=== PATIENT | female | born 1980 | race Caucasian/White ===

== ENCOUNTER 2018-01-12 01:05 | Emergency (ER) | payer MEDICAID ==
[2018-01-12] MEDS: ACETAMINOPHEN 325 MG TAB PO (03:07)
[2018-01-12 03:21] LABS: ADD MAN DIFF? NO
[2018-01-12 03:24] LABS: WHITE BLOOD COUNT 4.8 10^3/ul (4.8-10.8)
[2018-01-12 03:24] LABS: BASOPHILS % 0.2 % (0.0-2.0); EOSINOPHILS # 0.2 10^3/ul (0.0-0.5); EOSINOPHILS % 3.2 % (0.0-7.0); HEMATOCRIT 36.9 % (37.0-47.0); HEMOGLOBIN 11.9 g/dl (12.0-16.0); LYMPHOCYTES # 2.5 10^3/ul (0.8-2.9); LYMPHOCYTES % 51.9 % (15.0-51.0); MEAN CORPUSCULAR HEMOGLOBIN 27.7 pg (29.0-33.0); MEAN CORPUSCULAR HGB CONC 32.2 g/dl (32.0-37.0); MEAN CORPUSCULAR VOLUME 85.8 fl (82.0-101.0); MEAN PLATELET VOLUME 9.4 fl (7.4-10.4); MONOCYTE # 0.4 10^3/ul (0.3-0.9); MONOCYTES % 7.6 % (0.0-11.0); NEUTROPHIL # 1.8 10^3/ul (1.6-7.5); NEUTROPHILS % 37.1 % (39.0-77.0); PLATELET COUNT 228 10^3/UL (140-415); RED CELL DISTRIBUTION WIDTH 15.2 % (11.5-14.5)
[2018-01-12 03:32] LABS: ADD UMIC YES; UR ASCORBIC ACID NEGATIVE (NEGATIVE); UR BILIRUBIN (Dip) NEGATIVE (NEGATIVE); UR BLOOD (Dip) NEGATIVE (NEGATIVE); UR CLARITY SLIGHTLY CLOUDY (CLEAR); UR COLOR YELLOW (YELLOW); UR GLUCOSE (Dip) NEGATIVE (NEGATIVE); UR KETONES (Dip) NEGATIVE (NEGATIVE); UR LEUKOCYTE ESTERASE (Dip) 3+ Leu/ul (NEGATIVE); UR MUCUS FEW /HPF (NONE SEEN); UR NITRITE (Dip) NEGATIVE (NEGATIVE); UR RBC 2 /HPF (0-5); UR SQUAMOUS EPITHELIAL CELL FEW /HPF (FEW); UR TOTAL PROTEIN (Dip) NEGATIVE (NEGATIVE); UR UROBILINOGEN (Dip) 1+ mg/dL (NEGATIVE); UR WBC 57 /HPF (0-5)
[2018-01-12 04:06] LABS: ALANINE AMINOTRANSFERASE 24 IU/L (13-69); ALBUMIN 4.5 g/dl (3.3-4.9); ALBUMIN/GLOBULIN RATIO 1.36; ALKALINE PHOSPHATASE 50 IU/L (42-121); ANION GAP 16 (8-16); ASPARTATE AMINO TRANSFERASE 17 IU/L (15-46); BILIRUBIN,INDIRECT 0.5 mg/dl (0-1.1); BILIRUBIN,TOTAL 0.5 mg/dl (0.2-1.3); BLOOD UREA NITROGEN 19 mg/dl (7-20); CALCIUM 9.5 mg/dl (8.4-10.2); CARBON DIOXIDE 23 mmol/L (21-31); CHLORIDE 110 mmol/L (97-110); CREATININE 0.55 mg/dl (0.44-1.00); GLUCOSE 96 mg/dl (70-220); POTASSIUM 3.7 mmol/L (3.5-5.1); SODIUM 145 mmol/L (135-144); TOTAL PROTEIN 7.8 g/dl (6.1-8.1)
== END 2018-01-12 04:59 | disposition home or self-care (01) ==
LOC: FTE 01:05
DX: O20.9 Hemorrhage in early pregnancy, unspecified (principal); R10.2 Pelvic and perineal pain; Z3A.01 Less than 8 weeks gestation of pregnancy
CPT/HCPCS: 36415; 76801; 76817; 80053; 81001; 84702; 85025; 86900; 86901; 99284-25

== ENCOUNTER 2018-08-26 19:30 | Outpatient (CLI) | payer OTHER ==
[2018-08-26 20:52] LABS: ADD UMIC NO; UR ASCORBIC ACID NEGATIVE (NEGATIVE); UR BILIRUBIN (Dip) NEGATIVE (NEGATIVE); UR BLOOD (Dip) NEGATIVE (NEGATIVE); UR CLARITY CLEAR (CLEAR); UR COLOR YELLOW (YELLOW); UR GLUCOSE (Dip) NEGATIVE (NEGATIVE); UR KETONES (Dip) TRACE mg/dL (NEGATIVE); UR LEUKOCYTE ESTERASE (Dip) NEGATIVE Leu/ul (NEGATIVE); UR NITRITE (Dip) NEGATIVE (NEGATIVE); UR SPECIFIC GRAVITY (Dip) 1.019 (1.003-1.030); UR TOTAL PROTEIN (Dip) NEGATIVE (NEGATIVE); UR UROBILINOGEN (Dip) 2+ mg/dL (NEGATIVE)
== END 2018-08-26 22:23 | disposition home or self-care (01) ==
LOC: OBT 19:30 → L-D 19:31 → OBT 22:23
DX: O99.513 Diseases of the respiratory system complicating pregnancy, third trimester (principal); J11.1 Influenza due to unidentified influenza virus with other respiratory manifestations; Z3A.36 36 weeks gestation of pregnancy
CPT/HCPCS: 76818; 81003; 87086

== ENCOUNTER 2018-09-07 19:48 | Outpatient (CLI) | payer OTHER ==
[2018-09-07 20:31] LABS: ADD UMIC NO; UR ASCORBIC ACID NEGATIVE (NEGATIVE); UR BILIRUBIN (Dip) NEGATIVE (NEGATIVE); UR BLOOD (Dip) NEGATIVE (NEGATIVE); UR CLARITY CLEAR (CLEAR); UR COLOR YELLOW (YELLOW); UR GLUCOSE (Dip) NEGATIVE (NEGATIVE); UR KETONES (Dip) 1+ mg/dL (NEGATIVE); UR LEUKOCYTE ESTERASE (Dip) NEGATIVE Leu/ul (NEGATIVE); UR NITRITE (Dip) NEGATIVE (NEGATIVE); UR TOTAL PROTEIN (Dip) NEGATIVE (NEGATIVE); UR UROBILINOGEN (Dip) NEGATIVE (NEGATIVE)
== END 2018-09-07 21:15 | disposition home or self-care (01) ==
LOC: OBT 19:48 → L-D 19:49 → OBT 21:15
DX: O47.1 False labor at or after 37 completed weeks of gestation (principal); Z3A.38 38 weeks gestation of pregnancy
CPT/HCPCS: 81003

== ENCOUNTER 2018-09-10 13:21 | Outpatient (CLI) | payer OTHER ==
[2018-09-10] MEDS: ACETAMINOPHEN 325 MG TAB PO (15:36)
== END 2018-09-10 16:35 | disposition home or self-care (01) ==
LOC: OBT 13:21 → L-D 13:22 → OBT 16:35
DX: O62.9 Abnormality of forces of labor, unspecified (principal); O09.523 Supervision of elderly multigravida, third trimester; Z3A.38 38 weeks gestation of pregnancy
CPT/HCPCS: 76818

== ENCOUNTER 2018-09-15 09:10 | Inpatient (IN) | payer OTHER ==
[2018-09-15] MEDS ORDERED: LIDOCAINE 1% (MPF) 30 ML INJ INJ (10:30)
[2018-09-15] MEDS ORDERED: MISOPROSTOL 200 MCG TAB PR (10:30)
[2018-09-15] MEDS ORDERED: BUTORPHANOL 2 MG INJ IV (10:30)
[2018-09-15] MEDS ORDERED: CARBOPROST 250 MCG INJ IM (10:30)
[2018-09-15] MEDS ORDERED: OXYTOCIN 30 UNITS/LR 500 ML IV (10:30)
[2018-09-15] MEDS: LACTATED RINGER'S 1,000 ML IV ×4 (10:47→19:43)
[2018-09-15 10:48] LABS: ADD MAN DIFF? NO
[2018-09-15 10:58] LABS: WHITE BLOOD COUNT 6.3 10^3/ul (4.8-10.8)
[2018-09-15 10:58] LABS: BASOPHILS % 0.2 % (0.0-2.0); EOSINOPHILS # 0.1 10^3/ul (0.0-0.5); EOSINOPHILS % 1.4 % (0.0-7.0); HEMOGLOBIN 10.4 g/dl (12.0-16.0); LYMPHOCYTES # 1.5 10^3/ul (0.8-2.9); LYMPHOCYTES % 24.4 % (15.0-51.0); MEAN CORPUSCULAR HGB CONC 32.5 g/dl (32.0-37.0); MEAN CORPUSCULAR VOLUME 86.3 fl (82.0-101.0); MEAN PLATELET VOLUME 10.5 fl (7.4-10.4); MONOCYTE # 0.3 10^3/ul (0.3-0.9); MONOCYTES % 5.4 % (0.0-11.0); NEUTROPHIL # 4.3 10^3/ul (1.6-7.5); PLATELET COUNT 236 10^3/UL (140-415); RED BLOOD COUNT 3.71 10^6/ul (4.20-5.40); RED CELL DISTRIBUTION WIDTH 17.2 % (11.5-14.5)
[2018-09-15 11:16] LABS: ADD UMIC YES; UR ASCORBIC ACID NEGATIVE (NEGATIVE); UR BACTERIA FEW /HPF (NONE SEEN); UR BILIRUBIN (Dip) NEGATIVE (NEGATIVE); UR BLOOD (Dip) NEGATIVE (NEGATIVE); UR CLARITY CLEAR (CLEAR); UR COLOR YELLOW (YELLOW); UR GLUCOSE (Dip) NEGATIVE (NEGATIVE); UR KETONES (Dip) NEGATIVE (NEGATIVE); UR LEUKOCYTE ESTERASE (Dip) TRACE Leu/ul (NEGATIVE); UR NITRITE (Dip) NEGATIVE (NEGATIVE); UR RBC 1 /HPF (0-5); UR SPECIFIC GRAVITY (Dip) 1.008 (1.003-1.030); UR SQUAMOUS EPITHELIAL CELL FEW /HPF (FEW); UR TOTAL PROTEIN (Dip) NEGATIVE (NEGATIVE); UR UROBILINOGEN (Dip) NEGATIVE (NEGATIVE); UR WBC 1 /HPF (0-5)
[2018-09-15 11:17] LABS: INR 0.86; PARTIAL THROMBOPLASTIN TIME 26.8 Sec (23.0-35.0); PROTIME 11.8 Sec (11.9-14.9); PT RATIO 0.9
[2018-09-15 13:37] LABS: HEPATITIS B SURFACE ANTIGEN NEGATIVE (NEGATIVE)
[2018-09-15] MEDS: MISOPROSTOL 50 MCG CAPSULE PO (13:39)
[2018-09-15 15:59] LABS: RAPID PLASMA REAGIN NONREACTIVE (NR)
[2018-09-15] MEDS ORDERED: FENTAnyl 2MCG/ML-ROPIV 0.2% 100 ML (18:41)
[2018-09-15] MEDS: ONDANSETRON 4 MG INJ IV (19:45)
[2018-09-15] MEDS: OXYTOCIN 30 UNITS/LR 500 ML IV ×2 (21:20→21:45)
[2018-09-15] MEDS: METHYLERGONOVINE 0.2 MG INJ IM (21:22)
[2018-09-15] MEDS: DEXTROSE 5%-LR 1,000 ML IV (23:50)
[2018-09-16] MEDS ORDERED: MISOPROSTOL 200 MCG TAB PR
[2018-09-16] MEDS ORDERED: DIBUCAINE 1% 30 GM OINT TOP
[2018-09-16] MEDS ORDERED: ONDANSETRON 4 MG INJ IV
[2018-09-16] MEDS ORDERED: OXYCODONE/ASPIRIN (4.88/325) TAB PO
[2018-09-16] MEDS ORDERED: ACETAMINOPHEN 325 MG TAB PO
[2018-09-16] MEDS ORDERED: SENNA/DOCUSATE NA (8.6MG/50MG) TAB PO
[2018-09-16] MEDS ORDERED: ZOLPIDEM 5 MG TAB PO
[2018-09-16] MEDS ORDERED: METHYLERGONOVINE 0.2 MG INJ IM
[2018-09-16] MEDS ORDERED: CARBOPROST 250 MCG INJ IM
[2018-09-16] MEDS ORDERED: OXYTOCIN 30 UNITS/LR 500 ML IV
[2018-09-16] MEDS ORDERED: DIPHENHYDRAMINE 50 MG INJ IV
[2018-09-16] MEDS: IBUPROFEN 600 MG TAB PO ×5 (00:14→23:36)
[2018-09-16] MEDS: WITCH HAZEL/GLYCERIN PAD PR (00:14)
[2018-09-16] MEDS: BENZOCAINE 20% 56 ML SPRAY TOP (00:15)
[2018-09-16] MEDS: LACTATED RINGER'S 1,000 ML IV* (03:51)
[2018-09-16 07:47] LABS: ADD MAN DIFF? NO
[2018-09-16 08:01] LABS: BASOPHILS % 0.2 % (0.0-2.0); EOSINOPHILS # 0.1 10^3/ul (0.0-0.5); EOSINOPHILS % 0.7 % (0.0-7.0); HEMATOCRIT 28.1 % (37.0-47.0); HEMOGLOBIN 9.1 g/dl (12.0-16.0); LYMPHOCYTES # 1.7 10^3/ul (0.8-2.9); MEAN CORPUSCULAR HEMOGLOBIN 28.2 pg (29.0-33.0); MEAN CORPUSCULAR HGB CONC 32.4 g/dl (32.0-37.0); MEAN PLATELET VOLUME 10.6 fl (7.4-10.4); MONOCYTE # 0.8 10^3/ul (0.3-0.9); MONOCYTES % 8.1 % (0.0-11.0); NEUTROPHIL # 7.5 10^3/ul (1.6-7.5); NEUTROPHILS % 73.4 % (39.0-77.0); PLATELET COUNT 213 10^3/UL (140-415); RED BLOOD COUNT 3.23 10^6/ul (4.20-5.40); RED CELL DISTRIBUTION WIDTH 17.2 % (11.5-14.5)
[2018-09-16 08:01] LABS: WHITE BLOOD COUNT 10.2 10^3/ul (4.8-10.8)
[2018-09-16] MEDS: LANOLIN HPA 1 PKT TOP (09:57)
[2018-09-17] MEDS: IBUPROFEN 600 MG TAB PO ×2 (05:35→12:10)
[2018-09-17] MEDS: DIPHTH/TET/ACEL PERTUSS (ADULT) 0.5 ML VIAL IM* (07:37)
[2018-09-17] MEDS: MEASLES,MUMPS,RUBELLA VACCINE INJ SC* (07:38)
== END 2018-09-17 15:33 | disposition home or self-care (01) | DRG 807 ==
LOC: OBT 09:10 → L-D 09:11 → OBT 10:15 → L-D 10:15 → PP1 23:24
PROVIDERS: Obstetrics & Gynecology
PROC: 10E0XZZ Delivery of Products of Conception, External Approach (ICD-10-PCS; principal; 2018-09-15)
PROC: 0HQ9XZZ Repair Perineum Skin, External Approach (ICD-10-PCS; 2018-09-15)
PROC: 4A1HXCZ Monitoring of Products of Conception, Cardiac Rate, External Approach (ICD-10-PCS; 2018-09-15)
DX: O70.0 First degree perineal laceration during delivery (principal); Z37.0 Single live birth; Z3A.39 39 weeks gestation of pregnancy; Z88.0 Allergy status to penicillin
CPT/HCPCS: 62319; 76815; 81001; 85025; 85610; 85730; 86592; 86850; 86900; 86901; 87340

== ENCOUNTER 2018-10-04 21:07 | Emergency (ER) | payer OTHER ==
[2018-10-05] MEDS: SOD CHLORIDE 0.9% 1,000 ML IV (00:22)
[2018-10-05] MEDS: ACETAMINOPHEN 500 MG TAB PO (00:22)
[2018-10-05 00:28] LABS: ADD MAN DIFF? NO
[2018-10-05 00:30] LABS: BASOPHILS % 0.2 % (0.0-2.0); EOSINOPHILS % 0.2 % (0.0-7.0); HEMATOCRIT 36.1 % (37.0-47.0); HEMOGLOBIN 11.6 g/dl (12.0-16.0); LYMPHOCYTES % 8.4 % (15.0-51.0); MEAN CORPUSCULAR HEMOGLOBIN 27.9 pg (29.0-33.0); MEAN CORPUSCULAR HGB CONC 32.1 g/dl (32.0-37.0); MEAN CORPUSCULAR VOLUME 86.8 fl (82.0-101.0); MEAN PLATELET VOLUME 9.4 fl (7.4-10.4); MONOCYTE # 0.4 10^3/ul (0.3-0.9); MONOCYTES % 2.8 % (0.0-11.0); NEUTROPHIL # 10.8 10^3/ul (1.6-7.5); NEUTROPHILS % 87.7 % (39.0-77.0); PLATELET COUNT 222 10^3/UL (140-415); RED BLOOD COUNT 4.16 10^6/ul (4.20-5.40); RED CELL DISTRIBUTION WIDTH 18.2 % (11.5-14.5)
[2018-10-05 00:30] LABS: WHITE BLOOD COUNT 12.3 10^3/ul (4.8-10.8)
[2018-10-05 00:47] LABS: LACTIC ACID 1.2 mmol/L (0.5-2.0)
[2018-10-05 00:57] LABS: ALANINE AMINOTRANSFERASE 25 IU/L (13-69); ALBUMIN 3.9 g/dl (3.3-4.9); ALBUMIN/GLOBULIN RATIO 1.25; ALKALINE PHOSPHATASE 121 IU/L (42-121); ANION GAP 11 (5-13); ASPARTATE AMINO TRANSFERASE 21 IU/L (15-46); BILIRUBIN,INDIRECT 1.1 mg/dl (0-1.1); BILIRUBIN,TOTAL 1.1 mg/dl (0.2-1.3); BLOOD UREA NITROGEN 18 mg/dl (7-20); CALCIUM 9.1 mg/dl (8.4-10.2); CARBON DIOXIDE 23 mmol/L (21-31); CHLORIDE 103 mmol/L (97-110); Estimated GFR > 60 mL/min (>60); GLUCOSE 110 mg/dl (70-220); LIPASE 73 U/L (23-300); POTASSIUM 4.1 mmol/L (3.5-5.1); SODIUM 137 mmol/L (135-144)
[2018-10-05 02:23] LABS: URINE PH (Dip) POC 5.5 (5.0-8.5)
[2018-10-05 02:23] LABS: URINE BLOOD (Dip) POC Negative (NEGATIVE); URINE GLUCOSE (Dip) POC Negative (NEGATIVE); URINE KETONES (Dip) POC Negative (NEGATIVE); URINE LEUKOCYTE EST (Dip) POC Trace (NEGATIVE); URINE NITRITE (Dip) POC Negative (NEGATIVE); URINE TOTAL PROTEIN POC Negative (NEGATIVE)
[2018-10-05 02:37] LABS: ADD UMIC YES; UR ASCORBIC ACID 40 mg/dL (NEGATIVE); UR BILIRUBIN (Dip) NEGATIVE (NEGATIVE); UR BLOOD (Dip) NEGATIVE (NEGATIVE); UR CLARITY CLEAR (CLEAR); UR COLOR YELLOW (YELLOW); UR GLUCOSE (Dip) NEGATIVE (NEGATIVE); UR KETONES (Dip) NEGATIVE (NEGATIVE); UR LEUKOCYTE ESTERASE (Dip) TRACE Leu/ul (NEGATIVE); UR MUCUS FEW /HPF (NONE SEEN); UR NITRITE (Dip) NEGATIVE (NEGATIVE); UR RBC 3 /HPF (0-5); UR SPECIFIC GRAVITY (Dip) 1.026 (1.003-1.030); UR TOTAL PROTEIN (Dip) NEGATIVE (NEGATIVE); UR UROBILINOGEN (Dip) NEGATIVE (NEGATIVE); UR WBC 3 /HPF (0-5)
== END 2018-10-05 03:42 | disposition home or self-care (01) ==
LOC: FTE 21:07
DX: O98.53 Other viral diseases complicating the puerperium (principal); R10.2 Pelvic and perineal pain; B34.9 Viral infection, unspecified
CPT/HCPCS: 36415; 76856; 80053; 81001; 81003; 83605; 83690; 85025; 87400; 96360; 96361; 99285-25